=== PATIENT | female | born 1955 | race Caucasian/White ===

== ENCOUNTER → 2023-08-29 11:38 | Outpatient (BNVA) | payer MEDICARE, SELFPAY | PROVIDERS: PCP Internal Medicine; Referring Provider Internal Medicine; Visit Provider Physical Therapy Assistant | DX: Z12.11 Encounter for screening for malignant neoplasm of colon (principal) ==

== ENCOUNTER → 2025-03-11 10:56 | Outpatient (BNVA) | payer MEDICARE, SELFPAY | PROVIDERS: PCP Internal Medicine; Referring Provider Internal Medicine; Visit Provider Physical Therapy Assistant | DX: Z12.11 Encounter for screening for malignant neoplasm of colon (principal) | CPT/HCPCS: S0285 ==

== ENCOUNTER 2025-03-25 07:55 | Day surgery (SDC) | payer MEDICARE, SELFPAY ==
[2025-03-25 07:50] VITALS: BP 126/71; PULSE 72; RESP 16; TEMP 36.1; O2SAT 99
[2025-03-25] MEDS: Lactated Ringers 1,000 ML 80 ML IV (08:25)
--- NOTE | 2025-03-25 09:31 | W.ANESPRE ---
General Info Date of Service Date Performed: 03/25/25 Height: 5 ft 7 in Weight: 77.6 kg Body Mass Index (BMI): 26.8 Surgical Procedure: Operation Date: 03/25/25 09:05 Proposed Procedure Side Surgeon p Colonoscopy Rossy Chakraborty MD Meds Allergies and Home Medications Allergies Allergy/AdvReac Type Severity Reaction Status Date / Time morphine Allergy Unknown vomiting Uncoded 03/25/25 08:09 Home Medication ?Medication ?Instructions ?Recorded hydrochlorothiazide 25 mg tablet 25 mg PO DAILY 08/23/23 metoprolol succinate 100 mg 100 mg PO DAILY 08/23/23 tablet,extended release 24 hr aspirin 81 mg tablet,delayed 81 mg PO DAILY 08/29/23 release (Adult Aspirin Regimen) bisacodyl 5 mg tablet,delayed 5 mg PO ONCE #4 tabs 03/11/25 release (Dulcolax (bisacodyl)) gabapentin 300 mg capsule 300 mg PO QHS 03/11/25 polyethylene glycol 3350 17 17 g PO ONCE #238 grams 03/11/25 gram/dose oral powder Current Visit Medications: Current Medications Generic Name Dose Route Start Last Admin Trade Name Freq PRN Reason Stop Dose Admin Ringer's Solution 1,000 mls @ 80 mls/hr 03/25/25 06:00 03/25/25 08:25 IV 03/25/25 23:59 80 mls/hr INFUSION RAD Administration Sodium Biphosphate/Sodium Phosphate 133 ml 03/25/25 06:00 Na Phosphate Enema-Adult 133 Ml Btl UT 03/25/25 23:59 DIRECTED PRN Sodium Chloride 0 ml 03/25/25 06:00 Normal Saline Flush 10 Ml Syr IV 03/25/25 23:59 PRN PRN Sodium Chloride 0 ml 03/25/25 06:00 Normal Saline 10 Ml Vial IJ 03/25/25 23:59 DIRECTED PRN Sterile Water 0 ml 03/25/25 06:00 Water,Injection,Sterile 10 Ml Vial IJ 03/25/25 23:59 DIRECTED PRN PFSH Active Problems Active Problems: Problem Status Onset Code Encounter for screening colonoscopy Acute Z12.11 Medical History Medical History Epilepsy h/o seizure activity tx with dilantin. 20+ years since last seizure. pt not on meds currently-03/23/25mkb Dizziness and giddiness Allergic rhinitis Essential (primary) hypertension Atrial fibrillation Surgical History Surgical History History of total abdominal hysterectomy and bilateral salpingo-oophorectomy Tobacco Smoking/Tobacco Use Status: Current every day Tobacco Type: cigarettes Smoking cigarettes per day: 10 Alcohol Alcohol Intake: former Substance Use Substance use type: does not use Vital Signs and Lab Results Vital Signs Most Recent Vital Signs in EMR: Most Recent Vital Signs Temp Pulse Resp BP Pulse Ox 36.1 C L 72 16 126/71 99 03/25/25 07:50 03/25/25 07:50 03/25/25 07:50 03/25/25 07:50 03/25/25 07:50 Anesthesia Assessment and Plan Anesthesia History Personal History: PONV Family History: No Family History of Anesthesia Complications Exercise Tolerance Exercise Tolerance: Metabolic Equivalents>4 Pertinent Negatives Pertinent Negatives: No Symptoms of GERD Cardiac & Pulmonary Exam Cardiac Exam: Normal S1/S2 Heart Sounds Pulmonary Exam: Clear Bilateral Breath Sounds Implantable Cardiac Device Does patient have a Pacemaker or an ICD?: No Airway Exam Known Difficult Airway: No Mallampati Class: 2 Mouth Opening: Normal (> 3cm) Thyromental Distance: Greater than 3 cm Neck Range of Motion: Full ROM Neck Circumference: Normal Teeth Condition: Normal Dentition ASA Classification ASA Score: ASA 2 Emergency Case?: No NPO Status NPO Status: NPO Clears >2 hours, Solids >8 hours Anesthesia Plan Resuscitation Status: Full Code Anesthesia Technique: General Anesthesia Airway Planned: Natural Airway Monitors Used: Standard Monitors
[2025-03-25 09:32] VITALS: BMI 26.8
--- NOTE | 2025-03-25 09:34 | W.PM.DSUDISC ---
Date of service: 03/25/25 Discharge Plan Disposition Patient Disposition: Home Condition: Stable Discharge Details Attending Provider: Rossy Chakraborty Primary Care Provider: Bettina Barrow Home Meds and New Rx's Prescriptions: Continued aspirin [Adult Aspirin Regimen] 81 mg tablet,delayed release (DR/EC) 81 mg PO DAILY gabapentin 300 mg capsule 300 mg PO QHS metoprolol succinate 100 mg tablet extended release 24 hr 100 mg PO DAILY hydrochlorothiazide 25 mg tablet 25 mg PO DAILY Discontinued bisacodyl [Dulcolax (bisacodyl)] 5 mg tablet,delayed release (DR/EC) 5 mg PO ONCE Qty: 4 0RF Rx Instructions: Take per colonoscopy instructions provided by ordering providers office polyethylene glycol 3350 17 gram/dose powder 17 g PO ONCE Qty: 238 0RF Rx Instructions: Take per colonoscopy instructions provided by ordering providers office Discharge Instructions Additional Instructions: Two tiny polyps seen and removed from the colon today. Timing of next colonoscopy will depend on the biopsies of these polyps. I will communicate the results with you in writing through the mail. These are not cancer, I can tell you that today. The biopsy will tell us what kinds of polyps you are growing and when you should come back to weed the garden for polyps again. Diverticulosis of the sigmoid colon noted, no diverticulitis (infection) present. Take a daily fiber supplement and eat a high fiber diet to prevent problems and progression of diverticulosis. Stand Alone Forms: Portal Information Activity:: Activity as Tolerated Diet:: As Tolerated Discharge Orders Discharge Orders: Discharge Order (Routine); Ordered 03/25/25 Ordered By: Rossy Chakraborty DS: Diagnosis Discharge Diagnosis (1) Encounter for screening colonoscopy: Status: Acute (2) Polyp of descending colon: Status: Acute (3) Polyp of transverse colon: Status: Acute (4) Diverticulosis of sigmoid colon: Status: Acute
--- NOTE | 2025-03-25 09:36 | W.COLOREPORT ---
Date of service: 03/25/25 Time of Service: 09:36 Colonoscopy Report Pre-op diagnosis general: Screening for colorectal cancer Post-op diagnosis procedure note: same (1. transverse colon polyp. 2. descending colon polyp. ) Procedure: Colonoscopy with cold forcep polypectomy Surgeon: Rossy Chakraborty Anesthesia Type: General:No Airway Estimated blood loss (mL): 2 Pathology: other (1. transverse colon polyp. 2. descending colon polyp) Complications: None Indications: screening for colorectal cancer Prep: Miralax/Dulcolax (Good) Procedure Description: Informed consent was obtained and the patient was taken to the procedure area. The patient was placed in left lateral decubitus position on the procedure table. Timeout was performed. Anesthesia was induced. A lubricated colonoscope was inserted through the anus and passed to the cecum. The cecum was identified by the ileocecal valve and the appendiceal orifice. The scope was then slowly withdrawn and the colonic and rectal mucosa examined. Proximal transverse colon with 4mm sessile polyp excised with cold forcep. Descending colon with 3mm sessile polyp excised with cold forcep. Mild diverticulosis of sigmoid colon noted. The scope was retroflexed in the anorectal junction examined. Uncomplicated internal hemorrhoids present. Assessment and plan: screening for colorectal cancer Transverse colon polyp descending colon polyp Timing of next colonoscopy will depend on the path of excised polyps. High fiber diet or fiber supplement recommended for diverticulosis.
--- NOTE | 2025-03-25 09:51 | BOWEL_PTH ---
PATIENT: Alissa Mathews LOC: [facility] U#:[id number] AGE/SX: 69/F ROOM: RE03/25/[address]: Rossy Chakraborty MD : [id number] BED: DIS: 03/25/2025 SPEC #: [id number] RECD: 03/25/25 13:08 STATUS: FILIPE REBillie #: [id number] MONSERRAT: 03/25/25 09:[address]: Rossy Chakraborty DEPT: Surgical Specimen RECD BY: Monik Hoang ENTERED: 03/25/25 13:08 SP TYPE: Bowel OTHR DR: Bettina Barrow Tissues: 1 - BIOPSY BOWEL 2 - BIOPSY BOWEL Procedures: GROSS AND MICRO LEVEL 4 Comments: [id number]
[2025-03-25 10:02] VITALS: BP 115/64; PULSE 63; RESP 16; TEMP 36.3; O2SAT 98
--- NOTE | 2025-03-25 10:05 | W.ANESPOSTOP ---
Postoperative Evaluation Date, Time and Location Date Performed: 03/25/25 Time Performed: 10:05 Patient Location: Day Surgery Unit Vital Signs Most Recent Imported Vital Signs: Most Recent Vital Signs Temp Pulse Resp BP Pulse Ox 36.3 C L 63 16 115/64 98 03/25/25 10:02 03/25/25 10:02 03/25/25 10:02 03/25/25 10:02 03/25/25 10:02 Pain Score Most Recent Pain Score: Most Recent Pain Score Pain Level 0 03/25/25 10:02 Assessment Mental Status: Awake (Alert & Oriented to Patient Baseline) Airway and Respiratory Function: Patent airway with normal (patient baseline) respiratory exam Cardiovascular Function: Hemodynamically Stable Hydration Status: Adequately Hydrated Nausea & Vomiting: No Nausea or Vomiting Pain: Pt. Denies Any Pain Peripheral Nerve Block: Patient did not receive a nerve block
[2025-03-25 10:37] VITALS: BP 122/70; PULSE 61; RESP 16; TEMP 36.2; O2SAT 98
== END 2025-03-25 10:44 | disposition home or self-care (01) ==
PROVIDERS: PCP Internal Medicine; Visit Provider Surgery
PROC: 0DJD8ZZ Inspection of Lower Intestinal Tract, Via Natural or Artificial Opening Endoscopic (ICD-10-PCS; CPT 45378; principal; 2025-03-25 09:00)
DX: Z12.11 Encounter for screening for malignant neoplasm of colon (principal); D12.4 Benign neoplasm of descending colon; K57.30 Diverticulosis of large intestine without perforation or abscess without bleeding
CPT/HCPCS: 45380; 88305; J2003; J2704